=== PATIENT | male | born 2000 | race Caucasian/White ===

== ENCOUNTER 2023-08-29 13:52 | Emergency (ER) | payer MEDICAID ==
[~2023-08-29] VITALS: Ht 185.4 cm; Wt 97.7 kg
[2023-08-29 14:22] VITALS: BP 117/77; PULSE 98; RESP 18; TEMP 97.9; O2SAT 100
[2023-08-29] MEDS ORDERED: DOXY150T3 PO (16:09)
== END 2023-08-29 16:31 | disposition home or self-care (01) ==
LOC: ER 13:53
DX: L03.317 Cellulitis of buttock (principal)
CPT/HCPCS: 99283